=== PATIENT | female | born 1950 | race Caucasian/White ===

== ENCOUNTER → 2024-10-21 11:18 | Outpatient (BNVA) | payer MEDICARE, OTHER, SELFPAY | PROVIDERS: PCP Internal Medicine; Visit Provider Internal Medicine | DX: N63.10 Unspecified lump in the right breast, unspecified quadrant (principal); M54.50 Low back pain, unspecified; E03.9 Hypothyroidism, unspecified; Z79.899 Other long term (current) drug therapy | CPT/HCPCS: 96127; 99212 ==

== ENCOUNTER 2024-11-15 10:13 | Outpatient (AMB) | payer MEDICARE, OTHER, SELFPAY ==
--- NOTE | 2024-11-15 10:20 | MHC.PC.OV ---
Vital Signs 11/15/24 10:26 Height 5 ft 0.54 in Weight 141 lb 6 oz BMI 27.1 BP 104/76 Blood Pressure Location Lt brachial Position Sitting Respiration 12 Pulse 78 Pulse Source Pulse Oximeter Pulse Oximetry (%) 100 Oxygen Delivery Method Room Air Intake Visit Reasons: breast issues Intake Note: Follow up Property Damage Claims Adjustor Required: No Allergies gallium Allergy (Severe, Verified 11/15/24 10:22) Hives meperidine [From Demerol] Allergy (Severe, Verified 11/15/24 10:22) Headache negram Allergy (Severe, Uncoded 11/15/24 10:22) Headache Tobacco use date assessed: 11/15/24 Dental Screening Dental Screen Date: 01/13/24 HPI HPI Comments History of Present Illness Details The patient is a 73 year old female with a past medical history of hypothyroid, asthma, vertigo, hyperlipidemia presenting for right breast lump Since Aug she had some pain and a palpable mass in the right breast about 1 inch above the right nipple. She was on estradiol and a topical herbal cream that contains some estrogen. She has a history of breast implants with explantation in 2020. She has declined mammograms for the past few years. Did not want mammogram. Did undergo a right breast u/s 11/01/2024 -no evidence pf malignancy or other suspicious finding of palpable abnormality. Ideally, this should be further assessed with diagnostic mammogram, which the patient declines At the end of November flew to [place]. Midflight she developed mid/upper back pain more on the right. She denies onset of acute shortness of breath. She reports she did have some right leg discomfort on the flight and during the trip. [place] some [place] U[place] with [place]actrim which she completed. She has a history of nephrolithiasis and wonders if the discomfort could be a right sided kidney stone MSK: Low back pain, b/l hip pain L>R. Left sided sciatic, neck pain. Follows with PSS. Has done physical therapy and chiro CV: Denies chest pain. Mild increase in exertional dypsnea. In Jul 2021 had presyncope & palpitations. subsequent cardiac work up was benign. She now attributes this to covid vaccination. She is prone to vertigo and takes meclizine as needed. Hypothyroid: Stable on levothyroxine 88mcg daily On estradiol. Saw urology, gynecology. Was following with integrative medicine but became too pricey History of breast implants. Surgery in 2020 for explantation. Colonoscopy 11/2022 Declines further breast cancer screening ROS see HPI PHYSICAL EXAM: GENERAL: Alert and oriented x 3. NAD EYES: EOMI. Anicteric. HENT: Moist mucous membranes. No scleral icterus. No cervical lymphadenopathy. LUNGS: Clear to auscultation bilaterally. BREAST: Right breast normal to inspection, 2cm 12 oclock less firm that previous, somewhat mobile palpable mass CARDIOVASCULAR: Regular rate and rhythm. No murmur. No JVD. ABDOMEN: Soft, non-tender +bs EXTREMITIES: No edema. Non-tender. SKIN: No rashes or lesions. Warm. NEUROLOGIC: No focal neurological deficits. CN II-XII grossly intact PSYCHIATRIC: Cooperative. Appropriate mood and affect [facility] Social History Housing: House Alcohol intake: never Patient Tobacco Use Status: Never used Tobacco e-Cigarette/Vaping Use: Never Used Second Hand Smoke Exposure: No Use of substances other than those prescribed or required for medical reasons: No service: No Current occupational status: retired Cognitive needs: No Hearing needs: No Vision needs: Yes (glasses) Questionnaire PHQ-9 Over the last 2 weeks, how often have you been bothered by any of the following problems? 1. Little interest or pleasure in doing things: not at all 2. Feeling down, depressed, or hopeless: not at all 3. Trouble falling or staying asleep, or sleeping too much: not at all 4. Feeling tired or having little energy: not at all 5. Poor appetite or overeating: not at all 6. Feeling bad about yourself - or that you are a failure or have let yourself or your family down: not at all 7. Trouble concentrating on things, such as reading the newspaper or watching television: several days 8. Moving or speaking so slowly that other people could have noticed. Or the opposite - being so fidgety or restless that you have been moving around a lot more than usual: not at all 9. Thoughts that you would be better off or of hurting yourself in some way: not at all Total score: 1 Depression Screening Interpretation: Negative Depression Screening Done: Yes 98934 - PHQ-9 Billing: Yes Source: Developed by Drs. Alban Webber, Bobby Cervantes and colleagues, with an educational mitch from [employer]. Thrive Questionnaire Date Thrive assessed: 11/12/24 I am a: Patient What is your living situation today?: I have a steady place to live Within the past 12 months, did the food you bought not last and you didn't have the money to get more?: Never true Within the past 12 months, did you worry whether your food would run out before you got money to buy more?: Sometimes True Do you have trouble paying for medicines?: No Do you have trouble getting transportation to medical appointments?: No Do you have trouble paying your heating and electricity bill?: Yes Do you have trouble taking care of your child, family member or friend?: No Do you have trouble with day-to-day activities such as bathing, preparing meals, shopping, managing finances, etc.?: No Are you currently unemployed and looking for a job?: I choose not to answer this question Are you interested in more education?: Yes Please select the resources that you would like help with: Utilities Currently or been in a relationship where the following occur: No concerns reported THRIVE Score: 2 AUDIT C Alcohol Use Questionnaire (AUDIT-C) 1. How often do you have a drink containing alcohol?: Never Total Score: 0 JAY-7 AMB Questionnaire JAY-7 Date JAY - 7 assessed: 11/15/24 Feeling nervous, anxious, or on edge: 1 = Several days Not being able to stop or control worryin = Not at all Worrying too much about different things: 0 = Not at all Trouble relaxin = Not at all Being so restless that it is hard to sit still: 0 = Not at all Becoming easily annoyed or irritable: 1 = Several days Feeling afraid as if something awful might happen: 0 = Not at all Total JAY-7 score (0-4 normal; 5-9 mild; 10-14 moderate; 15-21 severe): 2 Source: Developed by Drs. Alban Webber, Bobby Cervantes and colleagues, with an educational mitch from [employer]. JAY-7 Assessment Billing JAY-7 Assessment Tool: JAY-7 Assessment 30560 Physical exam (Primary Care) Vital Signs: Last Vital Signs Pulse 78 11/15/24 10:26 Resp 12 11/15/24 10:26 BP 104/76 11/15/24 10:26 Pulse Ox 100 11/15/24 10:26 Oxygen Delivery Method Room Air 11/15/24 10:26 BMI result Body Mass Index 27.1 Tobacco/Smoking Status: Tobacco use Status Tobacco use date assessed 11/15/24 11/15/24 10:31 Patient Tobacco Use Status Never used Tobacco 11/15/24 10:43 e-Cigarette/Vaping Use Never Used 11/15/24 10:43 PHQ-9: PHQ-9 Score PHQ-9: Total score 1 11/15/24 10:38 Depression Screening Interpretation: Negative Thrive Assessment: Date of Thrive Assessment Date Thrive assessed 11/12/24 11/15/24 10:22 Currently or been in a relationship where the following occur: No concerns reported Coding Level of Care Code Est Pt Level 3 (39156) Diagnoses Chest mass R22.2 Mass of right breast, unspecified quadrant N63.10 Breast mass location: unspecified quadrant Additional Codes JAY-7 Assessment Billing - JAY-7 Assessment Tool: JAY-7 Assessment 46473 ([id number]) PHQ-9 - 44187 - PHQ-9 Billing: Yes ([id number]) Assessment & Plan Assessment & Plan (1) Chest mass: Code(s): R22.2 - Localized swelling, mass and lump, trunk Category: Medical (2) Breast mass, right: Code(s): N63.10 - Unspecified lump in the right breast, unspecified quadrant Category: Medical Qualifiers: Breast mass location: unspecified quadrant Qualified Code(s): N63.10 - Unspecified lump in the right breast, unspecified quadrant Plan 73 year old with right chest palpable mass Recommend MRI and breast/gen surgery consult. The latter is placed. Declines MR at this time Orders: Referrals General Surgery Referral N63.10 - Unspecified lump in the right breast, unspecified quadrant, R22.2 - Localized swelling, mass and lump, trunk
[2024-11-15 10:26] VITALS: BP 104/76; PULSE 78; RESP 12; O2SAT 100; BMI 27.1
--- OUTSIDE RECORDS SUMMARY | 2024-11-15 12:13 | XMS_ITS | Encounter Summary ---
Author Organization [employer] Address [address] [place] [address] [address] [place] [address] Care Team Providers Care Control System Manager Name Role Phone Unavailable Primary Care Provider Unavailabl e Reason for Visit * Reason Comments Routine Cleaning Encounter Details Date Type Department Care Team (Late st Contact Info) Description 11/01/2024 2:00 PM EDT Office Visit [facility] [address] [place] [phone] Antoinette Carr [address] [place] [id number] Social History Tobacco Use Types Packs/Day Years Used Date Smoking Tobacco: Never Smokeless Tobacco: Never Alcohol Use Standard Drinks/Week Comments Never 0 (1 standard drink = 0.6 oz pur e alcohol) Comments Unknown Sex and Gender Information Value Date Recorded Sex Assigned at Female 06/23/2022 10:34 AM EDT Legal Sex Female 10:34 AM EDT Gender Identity Female 06/23/2022 10:34 AM EDT Sexual Orientation Straight 06/23/2022 10 :34 AM EDT documented as of this encounter Last Filed Vital Signs Vital Sign Reading Time Taken Comments Blood Pressure 134/70 11/01/2024 2:17 PM EDT Pulse 74 11/01/2024 2:17 PM EDT Temperature - - Respiratory Rate - - Oxygen Saturation - - Inhaled Oxygen Concentration - - Weight - - Height - - Body Mass Index - - documented in this encounter Progress Notes * Antoinette Carr - 11/01/2024 2:00 PM EDT Patient ID: Angelina Argueta is a 73 y.o. female. Time Out: Date: 11/01/2024 Location: [facility] Tooth: all Procedure: Prophylaxis Verified the above with patient, secretary administrative assistant, and provider. Confirmed via patient's chart, intraorally and by radiographs. Second Crusher: not applicable Treatment Provided Dental procedures in this visit D1110 - PROPHYLAXIS - ADULT (Completed) Service provider: Antoinette Carr Billing provider: Kip Mcneill BDS Instruments Used: Hand Scalers and Prophy angle Calculus: Light Plaque: Light Stain: None Bleeding: Light Gingiva: Perio Charting Completed OH: Good OCS:neg findings HNE:neg findings Oral hygiene instructions provided to patient including brushing technique and flossing. Recommendations: Floss daily Recall Frequency: 6 mo NV: Hygienist: Antoinette Carr RDH Cosigned by Kip Mcneill BDS at 11/02/2024 5:06 PM EDT documented in this encounter Plan of Treatment Upcoming Encounters Date Type Department Care Team (Late st Contact Info) Description 11/29/2024 10:00 AM EDT Office Visit [facility] [address] [place] [phone] Kip Mcneill BDS [address] [place] [phone] documented as of this encounter Procedures Procedure Name Priority Date/Time Associated Diagnosis Comments PROPHYLAXIS - ADULT Routine 11/01/2024 2:00 PM EDT documented in this encounter Visit Diagnoses Not on filedocumented in this encounter
--- OUTSIDE RECORDS SUMMARY | 2024-11-15 12:13 | XMS_ITS | Encounter Summary ---
Author Organization [employer] Address [address] [place] [address] Care Team Providers Care Lead Painter Name Role Phone Unavailable Primary Care Provider Unavailabl e Encounter Details Date Type Department Care Team (Latest Contact Info) Description 10/22/2018 Abstract [facility] CONVERSIONS Dental, Provider, DDS Social History Tobacco Use Types Packs/Day Years Used Date Smoking Tobacco: Never Assessed Comments Unknown Sex and Gender Information Value Date Recorded Sex Assigned at Female 06/23/2022 10:34 AM EDT Legal Sex Female 10:34 AM EDT Gender Identity Female 06/23/2022 10:34 AM EDT Sexual Orientation Straight 06/23/2022 10 :34 AM EDT documented as of this encounter Plan of Treatment Upcoming Encounters Date Type Department Care Team (Late st Contact Info) Description 11/29/2024 10:00 AM EDT Office Visit [facility] [address] [place] [address] Kip Mcneill BDS [address] [place], [place] [phone] documented as of this encounter Visit Diagnoses Not on filedocumented in this encounter
--- OUTSIDE RECORDS SUMMARY | 2024-11-15 12:13 | XMS_ITS | Encounter Summary ---
Author Organization [employer] Address [address] [place] [address] Care Team Providers Care Establishment Guide Name Role Phone Unavailable Primary Care Provider Unavailabl e Reason for Visit * Reason Comments Consult For missing teeth Encounter Details Date Type Department Care Team (Late st Contact Info) Description 11/08/2024 11:30 AM EDT Office Visit [facility] [address] [place] [phone] Kip Mcneill BDS [address] [place] [address] Partially edentulous mandible, unspecified edentulism class (Primary Dx) Social History Tobacco Use Types Packs/Day Years [...] AM EDT documented as of this encounter Progress Notes * Kip Mcneill BDS - 11/08/2024 11:30 AM EDT Patient here to discuss about different options for replacement of missing lower teeth.Patient has bilateral multiple lingual abby.Adv a cast metal bar above the abby which is better and does not cause trauma to the abby.Patient wanted replacement for #15,adv to wait since #2 has guarded prognosis.To review and re evaluate upper partials and lower should be combination f metal lingual bar and flexible clasps. documented in this encounter Plan of Treatment Upcoming Encounters Date Type Department Care Team (Late st Contact Info) Description 11/29/2024 10:00 AM EDT Office Visit [facility] [address] [place] [phone] Kip Mcneill BDS [address] [place] [phone] documented as of this encounter Procedures Procedure Name Priority Date/Time Associated Diagnosis Comments LIMITED ORAL EVALUATION - PROBLEM FOCUSED Routine 11/08/2024 11:30 AM EDT documented in this encounter Visit Diagnoses Diagnosis Partially edentulous mandible, unspecified edentulism class- Primary documented in this encounter
--- OUTSIDE RECORDS SUMMARY | 2024-11-15 12:13 | XMS_ITS | Clinical Summary ---
Author Organization [employer] Address [address] [place] [address] Care Team Providers Care Child Study Team Director Name Role Phone Unavailable Primary Care Provider Unavailabl e Allergies Active Allergy Reactions Criticality Noted Date Comments Epinephrine Palpitations High 08/12/2018 Medications fluocinolone (DermOtic) 0.01 % ear drops INSTILL 2 TO 3 DROPS PER EAR FOR 2 WEEKS NEEDED DIRECTED BY OFFICE 2 Active levalbuterol (Xopenex) 45 MCG/ACT inhaler TAKE 1 PUFF BY MOUTH EVERY 4 HOURS NEEDED FOR WHEEZE/ FOR SHORTNESS OF BREATH 2 Active levothyroxine (Synthroid, Levoxyl) 88 MCG tablet Take 88 mcg by mouth in the morning. 2 Active meclizine (Antivert) 12.5 MG tablet Take 2 tablets by mouth every 8 (eight) hours. Active mometasone (Elocon) 0.1 % ointment APPLY TO ECZEMA ON FACE AND EXTREMITIES TWICE DAILY X UP TO 2 WKS ON, 1 WK OFF. REPEAT NEEDED. 2 Active estradiol (Estrace) 0.1 MG/GM vaginal cream INSERT 1 GRAM PER VAGINA 3X PER WEEK 2 Active EPINEPHrine (Epipen) 0.3 MG/0.3ML injection syringe 0.3 MG INTRAMUSCULAR ONCE, 2 PACK 3 Active EPINEPHrine (EpiPen 2-Rolando) 0.3 MG/0.3ML injection syringe Inject 0.3 mg into the shoulder, thigh, or buttocks. 3 Active hydrocortisone 2.5 % cream APPLY TO EYELID RASH TWICE A DAY NEEDED MAX 14 DAYS/MONTH 3 Active dehydroepiandr osterone (DHEA) 10 MG tablet Take by mouth. 2 Active Active Problems Problem Noted Date Diagnosed Date Dental caries 08/26/2023 Encounters Date Type Department Care Team Description 11/08/2024 11:30 AM EDT Office Visit [facility] [address] [place] [phone] Kip Mcneill BDS Partially edentulous mandible, unspecified edentulism class (Primary Dx) 11/01/2024 2:00 PM EDT Office Visit [facility] [address] [place] [phone] Antoinette Carr from Last 3 Months Social History Tobacco Use Types Packs/Day Years Used Date Smoking Tobacco: Never Smokeless Tobacco: Never Tobacco Cessation:Counseling Given: Not Answered Alcohol Use Standard Drinks/Week Comments Never 0 (1 standard drink = 0.6 oz pur e alcohol) Comments Unknown Sex and Gender Information Value Date Recorded Sex Assigned at Female 06/23/2022 10:34 AM EDT Legal Sex Female 10:34 AM EDT Gender Identity Female 06/23/2022 10:34 AM EDT Sexual Orientation Straight 06/23/2022 10 :34 AM EDT Last Filed Vital Signs Vital Sign Reading Time Taken Comments Blood Pressure 134/70 11/01/2024 2:17 PM EDT Pulse 74 11/01/2024 2:17 PM EDT Temperature - - Respiratory Rate - - Oxygen Saturation - - Inhaled Oxygen Concentration - - Weight - - Height - - Body Mass Index - - Plan of Treatment Upcoming Encounters Date Type Department Care Team (Late st Contact Info) Description 11/29/2024 10:00 AM EDT Office Visit [facility] [address] [place] [phone] Kip Mcneill BDS [address] [place] [phone] Health Maintenance Due Date Last Done Comments CT Colonography 1952 Colonoscopy 1952 Colorectal Cancer Screening 1952 Dental X-Ray: Full Mouth 1952 Depression Screening 1952 FIT DNA/Cologuard 1952 FIT 1952 FOBT 1952 SDOH Screening 1952 Sigmoidoscopy 1952 Alcohol/Substance Use Screening 1964 Hepatitis C Screening 1970 DTaP/Tdap/Td Vaccines (1 - Tdap) 12/04/1971 Pneumococcal Vaccine: 50+ Years (1 of 2 - PCV) 12/04/1971 Zoster Vaccines (1 of 2) 12/04/1971 Mammogram 1992 RSV Patients and Patients Aged 60 years or older (1 - Risk 60-74 years 1-dose series) 2012 COVID-19 Vaccine (2 - Pfizer risk series) 10/25/2021 10/04/2021 Dental Oral Exam 03/10/2023 09/09/2022 Influenza Vaccine (#1) 2024 Dental Prophylaxis 05/05/2025 11/01/2024, 0 09/16/2023, 09/09/2022 Dental X-Ray: Bitewings 07/13/2025 07/12/20, 08/26/2023, 01/21/2023, Additional history exists Tobacco Screening 11/08/2025 11/08/2024 HIB Vaccines Aged Out No longer eligi ble based on patient's age to complete this topic HPV Vaccines Aged Out No longer eligi ble based on patient's age to complete this topic Hepatitis A Vaccines Aged Out No long er eligible based on patient's age to complete this topic Hepatitis B Vaccines Aged Out No long er eligible based on patient's age to complete this topic IPV Vaccines Aged Out No longer eligi ble based on patient's age to complete this topic Meningococcal Vaccine Aged Out No justin soni eligible based on patient's age to complete this topic RSV under 20 months Aged Out No longe r eligible based on patient's age to complete this topic Rotavirus Vaccines Aged Out No longer eligible based on patient's age to complete this topic Procedures Procedure Name Priority Date/Time Associated Diagnosis Comments LIMITED ORAL EVALUATION - PROBLEM FOCUSED Routine 11/08/2024 11:30 AM EDT PROPHYLAXIS - ADULT Routine 11/01/2024 2 :00 PM EDT BITEWING - SINGLE RADIOGRAPHIC IMAGE Routine 07/12/2024 11:30 AM EST PERIODIC ORAL EVALUATION - ESTABLISHED PATIENT Routine 09/09/2022 2:00 PM EST from Last 3 Months or Most Recently Relevant to Health Maintenance Insurance DENTAL - [facility] D[facility] - [facility]
--- OUTSIDE RECORDS SUMMARY | 2024-11-15 12:13 | XMS_ITS | Encounter Summary ---
Author Organization [email or web address] Address [address] [place] [address] Care Team Providers Care Security Assistant Name Role Phone Unavailable Primary Care Provider Unavailabl e Encounter Details Date Type Department Care Team (Latest Contact Info) Description 06/25/2021 Abstract [facility] CONVERSIONS Dental, Provider, DDS Social History [...] Description 11/29/2024 10:00 AM EDT Office Visit [facility] [address] [place] [address] Kip Mcneill BDS [address] [place], [place] [phone] documented as of this encounter Visit Diagnoses Not on filedocumented in this encounter
== END 2024-11-15 10:50 | disposition home or self-care (01) ==
LOC: HO.HMCFM 10:13
PROVIDERS: PCP Internal Medicine; Visit Provider Internal Medicine
DX: R22.2 Localized swelling, mass and lump, trunk (principal); N63.10 Unspecified lump in the right breast, unspecified quadrant

== ENCOUNTER → 2024-11-15 10:13 | Outpatient (BNVA) | payer MEDICARE, OTHER, SELFPAY | PROVIDERS: PCP Internal Medicine; Visit Provider Internal Medicine | DX: N63.10 Unspecified lump in the right breast, unspecified quadrant (principal); R22.2 Localized swelling, mass and lump, trunk; E03.9 Hypothyroidism, unspecified; J45.909 Unspecified asthma, uncomplicated; E78.5 Hyperlipidemia, unspecified | CPT/HCPCS: 96127; 99212 ==

== ENCOUNTER 2024-12-20 14:28 | Outpatient (AMB) | payer MEDICARE, OTHER, SELFPAY ==
--- NOTE | 2024-12-20 14:34 | A.OFFPC_ITS ---
Vital Signs 12/20/24 14:39 Height 5 ft 0.57 in Weight 147 lb 2 oz BMI 28.2 BP 124/62 Blood Pressure Location Rt brachial Respiration 14 Pulse 64 Pulse Source Pulse Oximeter Pulse Oximetry (%) 98 Oxygen Delivery Method Room Air Intake Visit Reasons: urgent care follow up appointment Intake Note: Had a fall 11/24 and hurt lower back. Allergies gallium Allergy (Severe, Verified 11/15/24 10:22) Hives meperidine [From Demerol] Allergy (Severe, Verified 11/15/24 10:22) Headache negram Allergy (Severe, Uncoded 11/15/24 10:22) Headache Tobacco use date assessed: 11/15/24 Fall risk assessment: 1 Fall in past year Last assessed Fall Risk: 12/20/24 Dental Screening Dental Screen Date: 01/13/24 Did you have a dental visit in the last 12 months?: Yes Did you have a dental problem in the last 6 months where you did not have access to dental care?: No Was dental information given to patient?: Patient has dentist HPI HPI Comments History of Present Illness Details The patient is a 73 year old female with a past medical history of hypothyroid, asthma, vertigo, hyperlipidemia presenting for urgent care follow up She fell on 11/24. Twisted her lower spine trying to hold her mother up. She was prescribed muscle relaxant. She continues to have moderately severe right thoracolumbar back spasm albeit some interval improvement. She is now following with surgery, Dr Carroll for a palpable mass in the rig ht breast about 1 inch above the right nipple. She was on estradiol and a topical herbal cream that contains some estrogen. She has a history of breast implants with explantation in 2020. She has declined mammograms for the past few years. Did not want mammogram. Did undergo a right breast u/s 11/01/2024 -no evidence pf malignancy or other suspicious finding of palpable abnormality. Dr Carroll also recommended diagnostic mammogram which the patient declines and then contrast MRI but patient has issues with contrast and so have settled on non contrast MRI At the end of November flew to [place]. Midflight she developed mid/upper back pain more on the right. She denies onset of acute shortness of breath. She reports she did have some right leg discomfort on the flight and during the trip. [place] she completed. She has a history of nephrolithiasis and wonders if the discomfort could be a right sided kidney stone MSK: Chronic low back pain, b/l hip pain L>R. Left sided sciatic, neck pain. Follows with PSS. Has done physical therapy and chiro CV: Denies chest pain. Mild increase in exertional dypsnea. In Jul 2021 had presyncope & palpitations. subsequent cardiac work up was benign. She now attributes this to covid vaccination. She is prone to vertigo and takes meclizine as needed. Hypothyroid: Stable on levothyroxine 88mcg daily On estradiol. Saw urology, gynecology. Was following with integrative medicine but became too pricey History of breast implants. Surgery in 2020 for explantation. Colonoscopy 11/2022 Declines further breast cancer screening ROS see HPI PHYSICAL EXAM: GENERAL: Alert and oriented x 3. NAD EYES: EOMI. Anicteric. HENT: Moist mucous membranes. No scleral icterus. No cervical lymphadenopathy. LUNGS: Clear to auscultation bilaterally. CARDIOVASCULAR: Regular rate and rhythm. No murmur. No JVD. ABDOMEN: Soft, non-tender +bs EXTREMITIES: No edema. Non-tender. MSK: Notable right thoracolumbar and lower right trapezius spasm SKIN: No rashes or lesions. Warm. NEUROLOGIC: No focal neurological deficits. CN II-XII grossly intact PSYCHIATRIC: Cooperative. Appropriate mood and affect [facility] Social History Housing: House Alcohol intake: never Patient Tobacco Use Status: Never used Tobacco e-Cigarette/Vaping Use: Never Used Second Hand Smoke Exposure: No service: No Current occupational status: retired Cognitive needs: No Hearing needs: No Vision needs: Yes (glasses) Questionnaire Thrive Questionnaire Date Thrive assessed: 11/12/24 I am a: Patient What is your living situation today?: I have a steady place to live Within the past 12 months, did the food you bought not last and you didn't have the money to get more?: Never true Within the past 12 months, did you worry whether your food would run out before you got money to buy more?: Sometimes True Do you have trouble paying for medicines?: No Do you have trouble getting transportation to medical appointments?: No Do you have trouble paying your heating and electricity bill?: Yes Do you have trouble taking care of your child, family member or friend?: No Do you have trouble with day-to-day activities such as bathing, preparing meals, shopping, managing finances, etc.?: No Are you currently unemployed and looking for a job?: I choose not to answer this question Are you interested in more education?: Yes Please select the resources that you would like help with: Utilities Currently or been in a relationship where the following occur: No concerns reported THRIVE Score: 2 JAY-7 AMB Questionnaire JAY-7 Date JAY - 7 assessed: 11/15/24 Source: Developed by Drs. Alban Webber, Jada Del Real, Bobby Prather and colleagues, with an educational mitch from [employer] Physical exam (Primary Care) Vital Signs: Last Vital Signs Pulse 64 12/20/24 14:39 Resp 14 12/20/24 14:39 BP 124/62 12/20/24 14:39 Pulse Ox 98 12/20/24 14:39 Oxygen Delivery Method Room Air 12/20/24 14:39 BMI result Body Mass Index 28.2 Tobacco/Smoking Status: Tobacco use Status Tobacco use date assessed 11/15/24 12/20/24 14:35 Patient Tobacco Use Status Never used Tobacco 12/20/24 14:35 e-Cigarette/Vaping Use Never Used 12/20/24 14:35 Thrive Assessment: Date of Thrive Assessment Date Thrive assessed 11/12/24 12/20/24 14:35 Currently or been in a relationship where the following occur: No concerns reported Coding Level of Care Code Est Pt Level 4 (21199) Diagnoses Lumbar back pain M54.50 Fall, subsequent encounter W19.XXXD Encounter type: subsequent encounter Assessment & Plan Assessment & Plan (1) Lumbar back pain: Code(s): M54.50 - Low back pain, unspecified Category: Medical (2) Fall: Code(s): W19.XXXA - Unspecified fall, initial encounter Category: Medical Qualifiers: Encounter type: subsequent encounter Qualified Code(s): W19.XXXD - Unspecified fall, subsequent encounter Plan Fall, back spasm Acute on chronic low back pain PT referral placed Prednisone pulse and valium prn Orders: Orders PT Evaluation and Treatment 12/20/24 M54.50 - Low back pain, unspecified, M54.6 - Pain in thoracic spine Medications: New prednisone 40 mg (2 x 20 mg) PO DAILY 10 tabs 0RF 5 days diazepam (Valium) 2 - 4 mg (1 - 2 x 2 mg) PO BEDTIME PRN 20 tabs 0RF sleep
[2024-12-20 14:39] VITALS: BP 124/62; PULSE 64; RESP 14; O2SAT 98; BMI 28.2
--- OUTSIDE RECORDS SUMMARY | 2024-12-20 16:44 | XMS_ITS | Clinical Summary ---
Author Organization [facility] Address [address] [place] [address] Phone Care Team Providers Care Cardiovascular Tech Name Role Phone Yumiko Chamorro MD Primary Care Provider [phone] Allergies Active Allergy Reactions Criticality Noted Date Comments Barium Sulfate Hives 11/29/2024 Shrimp Diarrhea 11/29/2024 Medications levothyroxine (SYNTHROID, LEVOTHROID) 88 mcg tablet Take 1 tablet (88 mcg total) by mouth 1 (one) time each day. 5 Active fluocinolone acetonide oiL 0.01 % drops APPLY DAILY TO EARS FOR UP TO 2 WEEKS AT A TIME NEEDED 5 Active EPINEPHrine (EPIPEN) 0.3 mg/0.3 mL injection INJECT INTO OUTER THIGH NEEDED FOR ANAPHYLAXIS AND THEN CALL 911 4 Active Encounters Date Type Department Care Team Description 11/29/2024 10:00 AM EDT Consult General Surgery [address] [place] [address] Yumiko Guevara MD Mass of right breast, unspecified quadrant (Primary Dx); Unspecified lump in the right breast, unspecified quadrant; History of breast implant removal; History of breast augmentation; Unspecified lump in the right breast, overlapping quadrants from Last 3 Months Social History Tobacco Use Types Packs/Day Years Used Date Smoking Tobacco: Never Tobacco Cessation:Counseling Given: Not Answered Alcohol Use Standard Drinks/Week Comments Not Currently 0 (1 standard drink = 0.6 oz pur e alcohol) Comments Unknown Sex and Gender Information Value Date Recorded Sex Assigned at Not on file Legal Sex Female 10:14 AM EDT Gender Identity Not on file Sexual Orientation Not on file Obstetrics History Last Filed Vital Signs Vital Sign Reading Time Taken Comments Blood Pressure 122/80 11/29/2024 10:21 AM EDT Pulse 76 11/29/2024 10:21 AM EDT Temperature 36.3 ??C (97.3 ??F) 11/29/2024 1 0:21 AM EDT Respiratory Rate - - Oxygen Saturation - - Inhaled Oxygen Concentration - - Weight 64.8 kg (142 lb 12.8 oz) 025 10:21 AM EDT Height 162.6 cm (5' 4 ) 11/29/2024 10:2 1 AM EDT Body Mass Index 24.51 11/29/2024 10:21 AM EDT Plan of Treatment Health Maintenance Due Date Last Done Comments Breast Cancer Screening 1950 DTaP,Tdap,and Td Vaccines (1 - Tdap) 12/04/1971 Pneumococcal Vaccine: 50+ Ye ars (1 of 1 - PCV) 2002 Zoster Vaccines (1 of 2) 2002 COVID-19 Vaccine (2 - 2023-2 5 season) 2024 10/04/2021 Colorectal Cancer Screening: Colonoscopy 11/23/2024 Depression Screening 11/23/2024 Falls Risk Assessment 11/23/2024 Hepatitis C Screening 11/23/2024 Medicare Annual Wellness Visit 11/23/2024 Osteoporosis Screening (Bone Density Screening) 11/23/2024 Social Influencers of Health Screening 11/23/2024 Influenza Vaccine (Season Ended) 2025 RSV Immunization Adult Patie nts (1 - 1-dose 75+ series) 12/04/2027 HIB Vaccines Aged Out No longer eligi [...] on patient's age to complete this topic MMR Vaccines Aged Out No longer eligi ble based on patient's age to complete this topic Meningococcal ACWY Vaccine Aged Out N o longer eligible based on patient's age to complete this topic Meningococcal B Vaccine Aged Out No l onger eligible based on patient's age to complete this topic RSV Immunization Patients Un angelica 20 months Aged Out No longer eligible b ased on patient's age to complete this topic Varicella Vaccines Aged Out No longer eligible based on patient's age to complete this topic Insurance MEDICARE [facility] Care Teams Cardiovascular Tech Relationship Specialty Start Date End Date Yumiko Chamorro MD [address] [place] [id number] PCP - General Internal Medicine 11/23/24
--- OUTSIDE RECORDS SUMMARY | 2024-12-20 16:44 | XMS_ITS | Encounter Summary ---
Author Organization [employer] Address [address] [place] [address] Care Team Providers Care Anvil Worker Name Role Phone Unavailable Primary Care Provider Unavailabl e Encounter Details Date Type Department Care Team (Latest Contact Info) Description 10/22/2018 Abstract [facility] Dental, Provider, DDS Social History Tobacco Use Types Packs/Day Years Used Date Smoking Tobacco: Never Assessed Comments Unknown Sex and Gender Information Value Date Recorded Sex Assigned at Female 06/23/2022 10:34 AM EDT Legal Sex Female 10:34 AM EDT Gender Identity Female 06/23/2022 10:34 AM EDT Sexual Orientation Straight 06/23/2022 10 :34 AM EDT documented as of this encounter Plan of Treatment Not on file documented as of this encounter Visit Diagnoses Not on filedocumented in this encounter
--- OUTSIDE RECORDS SUMMARY | 2024-12-20 16:44 | XMS_ITS | Clinical Summary ---
Author Organization [employer] Address [address] [place] [address] Care Team Providers Care Head Batcher Name Role Phone Unavailable Primary Care Provider [...] Description 11/08/2024 11:30 AM EDT Office Visit [facility] [address] [place] [id number] Kevin Mcneillsastewart, BDS Partially edentulous mandible, unspecified edentulism class (Primary Dx) 11/01/2024 2:00 PM EDT Office Visit [facility] [address] [place] [address] Antoinette Carr from Last 3 Months Social [...] Mass Index - - Plan of Treatment Health Maintenance Due Date [...] Relevant to Health Maintenance Insurance DENTAL - [facility] - [employer]
--- OUTSIDE RECORDS SUMMARY | 2024-12-20 16:44 | XMS_ITS | Encounter Summary ---
Author Organization [employer] Address [address] [place] [address] Care Team Providers Care Transportation Economics Teacher Name Role Phone Unavailable Primary Care Provider Unavailabl e Encounter Details Date Type Department Care Team (Latest Contact Info) Description 06/25/2021 Abstract [facility] Dental, Provider, DDS Social History [...]
== END 2024-12-20 15:08 | disposition home or self-care (01) ==
LOC: HO.HMCFM 14:29
PROVIDERS: PCP Internal Medicine; Visit Provider Internal Medicine
DX: M54.50 Low back pain, unspecified (principal); W19.XXXD Unspecified fall, subsequent encounter

== ENCOUNTER → 2024-12-20 14:28 | Outpatient (BNVA) | payer MEDICARE, OTHER, SELFPAY | PROVIDERS: PCP Internal Medicine; Visit Provider Internal Medicine | DX: M54.50 Low back pain, unspecified (principal); E03.9 Hypothyroidism, unspecified; J45.909 Unspecified asthma, uncomplicated; E78.5 Hyperlipidemia, unspecified; Z91.81 History of falling | CPT/HCPCS: 99212 ==

== ENCOUNTER 2025-06-09 09:15 | Outpatient (AMB) | payer MEDICARE, OTHER, SELFPAY ==
--- OUTSIDE RECORDS SUMMARY | 2025-06-08 10:30 | XMS_ITS | Encounter Summary ---
Author Organization [facility] Address [address] [place] [address] Phone Care Team Providers Care Radial Drill Operator Name Role Phone Yumiko Stafford MD Primary Care Provider + [phone] Reason for Visit * Reason Comments Wheezing X 3 months following covid in march Cough X 3 months Encounter Details Date Type Department Care Team (Late st Contact Info) Description 06/08/2025 10:30 AM EDT Office Visit [facility] [address] [address] Holli Ceron, [address] [address] [email or web address] Malorie Busby, [facility] [address] [place] [address] [email or web address] Acute cough (Primary Dx) Social History Tobacco Use Types Packs/Day Years Used Date Smoking Tobacco: Never Smokeless Tobacco: Never Tobacco Cessation:Counseling Given: Not Answered Alcohol Use Standard Drinks/Week Comments Not Currently 0 (1 standard drink = 0.6 oz pur e alcohol) Education Answer Date Recorded Are you interested in more education? Not on emani e 12/20/2022 Are you concerned about learning? Not on file 12/20/2022 No 12/20/2022 No 12/20/2022 Digital Access Answer Date Recorded No 01/18/2023 No 01/18/2023 Reliable internet access at home? Not on file 01/18/2023 Device with a working camera? Not on file Intimate Partner Violence Answer Date R ecorded Are you denied basic needs s uch as food, clothing, or medical care? No 12/16/2022 In the past 12 months have y ou been in a relationship with a person who hurts, threatens, or tries to control you? No 12/16/2022 Are you denied basic needs s uch as food, clothing, or medical care? No 12/16/2022 In the past 12 months have y ou been in a relationship with a person who hurts, threatens, or tries to control you? No 12/16/2022 Comments Unknown Sex and Gender Information Value Date Recorded Sex Assigned at Not on file Legal Sex Female 8:31 AM EST Gender Identity Not on file Sexual Orientation Not on file documented as of this encounter Last Filed Vital Signs Vital Sign Reading Time Taken Comments Blood Pressure 132/67 06/08/2025 10:41 AM EDT Pulse 69 06/08/2025 10:41 AM EDT Temperature 36.9 C (98.4 F) 06/08/2025 10:41 AM EDT Respiratory Rate 18 06/08/2025 10:41 AM EDT Oxygen Saturation 99% 06/08/2025 10:41 AM EDT Inhaled Oxygen Concentration - - Weight 63.5 kg (140 lb) 06/08/2025 10:41 AM EDT Height 162.6 cm (5' 4 ) 06/08/2025 10:41 AM EDT Body Mass Index 24.03 06/08/2025 10:41 AM EDT documented in this encounter Progress Notes * Malorie Busby, STONE SPREADER OPERATOR - 06/08/2025 10:30 AM EDT Images from the original note were not included. Subjective: Patient ID: Angelina Argueta is a 74 y.o. female. Wheezing and cough x 3 months in AM. Hx asthma, takes albuterol. Has not tried allergy medicine because of fear of dementia risk. Concerned for TB because a friend has previously been treated for it. No fevers or systemic illness Review of Systems Constitutional: Negative. Respiratory: Positive for cough and wheezing. Negative for shortness of breath. Vitals: 06/08/25 1041 BP: 132/67 BP Location: Right arm Pulse: 69 Resp: 18 Temp: 36.9 ??C (98.4 ??F) TempSrc: Temporal SpO2: 99% Weight: 63.5 kg (140 lb) Height: 162.6 cm (5' 4 ) Objective: Physical Exam Constitutional: Appearance: Normal appearance. HENT: Head: Normocephalic and atraumatic. Right Ear: External ear normal. Left Ear: External ear normal. Nose: Nose normal. Pulmonary: Effort: Pulmonary effort is normal. Breath sounds: Normal breath sounds. Skin: General: Skin is warm and dry. Neurological: General: No focal deficit present. Mental Status: She is alert and oriented to person, place, and time. Psychiatric: Mood and Affect: Mood normal. Behavior: Behavior normal. Thought Content: Thought content normal. Judgment: Judgment normal. No results found for this visit on 06/08/25. Procedure: Procedures Assessment/Plan: Diagnosis Plan 1. Acute cough XR Chest Assessment and Plan: Asthma exacerbation -Lungs presently clear and sats 99% -CXR normal, no pneumonia or TB - Recommended trialing allergy medication -Could also try HEPA filter in bedroom -Recommend further follow up with PCP documented in this encounter Plan of Treatment Not on file documented as of this encounter Procedures Procedure Name Priority Date/Time Associated Diagnosis Comments XR CHEST PA AND LATERAL 2 VIEWS Urgent/patient waiting 06/08/2025 11:02 AM EDT Acute cough documented in this encounter Results * XR CHEST PA AND LATERAL 2 VIEWS (06/08/2025 11:02 AM EDT) Anatomical Region Laterality Modality Chest Computed Radiogr aphy 06/08/2025 11:3 9 AM EDT Impressions 06/08/2025 11:41 AM EDT No pneumonia or acute cardiopulmonary process. Narrative 06/08/2025 11:41 AM EDT XR CHEST PA AND LATERAL 2 VIEWS Referring clinician's provided indication for this examination in Epic: Cough COMPARISON: None. FINDINGS: Devices/Tubes/Lines: None. Lungs: No focal consolidation or pulmonary edema. Pleura: No pleural effusion or pneumothorax. Heart/Mediastinum: Normal cardiac silhouette. Normal mediastinal contours. Bones/Soft Tissues: No acute osseous abnormality. Mild leftward curvature of the thoracic spine with mild multilevel degenerative changes. Procedure Note Raman Palacios MD - 06/08/2025 XR CHEST PA AND LATERAL 2 VIEWS Referring clinician's provided indication for this examination in Epic:Cough COMPARISON: None. FINDINGS: Devices/Tubes/Lines: None. Lungs: No focal consolidation or pulmonary edema. Pleura: No pleural effusion or pneumothorax. Heart/Mediastinum: Normal cardiac silhouette. Normal mediastinalcontours. Bones/Soft Tissues: No acute osseous abnormality. Mild leftward curvatureof the thoracic spine with mild multilevel degenerative changes. IMPRESSION: No pneumonia or acute cardiopulmonary process. Malorie Busby STONE SPREADER OPERATOR IMG XR CHEST Final R esult documented in this encounter Visit Diagnoses Diagnosis Acute cough- Primary documented in this encounter Care Teams Radial Drill Operator Relationship Specialty Start Date End Date Yumiko Stafford MD PCP - General Internal Medicine 12/16/22 documented as of this encounter Additional Source Comments The information contained in this document represents components of the legal health record. It is not the complete legal health record.[facility]
--- OUTSIDE RECORDS SUMMARY | 2025-06-08 10:54 | XMS_ITS | Encounter Summary ---
Author Organization [facility] Address [address] [place] [address] Phone Care Team Providers Care Golf Club Facer Name Role Phone Yumiko Stafford MD Primary Care Provider + [phone] Encounter Details Date Type Department Care Team (Late st Contact Info) Description 06/08/2025 10:54 AM EDT Hospital Encounter [facility] [address] [place] [id number] Malorie Busby, PROSPECTING DRILLER [address] [place] [address] [email or web address] Arrived Social History Tobacco Use Types Packs/Day Years [...] acute cardiopulmonary process. us Malorie Christian Qi PROSPECTING DRILLER IMG XR CHEST Final R esult documented in this encounter Visit Diagnoses Not on filedocumented in this encounter Care Teams Golf Club Facer Relationship Specialty Start Date End Date Yumiko Stafford MD PCP - General Internal Medicine 12/16/22 documented as of this encounter Additional Source Comments The information contained in this document represents components of the legal health record. It is not the complete legal health record.[facility]
--- NOTE | 2025-06-09 09:22 | MHC.PC.OV ---
Vital Signs 06/09/25 09:27 Height 5 ft 1 in Weight 145 lb 4 oz BMI 27.4 BP 122/70 Blood Pressure Location Lt brachial Position Sitting Respiration 12 Pulse 66 Pulse Source Pulse Oximeter Temp 97.6 F Temp Source Oral Pulse Oximetry (%) 98 Oxygen Delivery Method Room Air Intake Visit Reasons: TB Test /covid symptoms Intake Note: Patient c/o wheezing x 2 months. Patient had covid in March and still is not feeling better. Newsperson Required: No Allergies gallium Allergy (Severe, Verified 06/09/25 09:57) Hives meperidine (From Demerol) Allergy (Severe, Verified 06/09/25 09:57) Headache negram Allergy (Severe, Uncoded 06/09/25 09:23) Headache Medication List - Last Reconciled 06/09/25 by TED Ventura- [ddr prime .] diazepam (Valium) 2 - 4 mg (1 - 2 x 2 mg) PO BEDTIME PRN epinephrine IM DAILY fluocinolone acetonide oil 0.01% drps otic (ears) [Frankincense .] levalbuterol tartrate 45 mcg/actuation (Xopenex HFA) 2 puffs inhalation Q4-6H PRN levothyroxine 88 mcg PO DAILY meclizine 12.5 mg PO TID PRN [omega .] prednisone 40 mg (2 x 20 mg) PO DAILY 5 days [probiotic .Route.] Tobacco use date assessed: 06/09/25 Fall risk assessment: 1 Fall in past year Last assessed Fall Risk: 06/09/25 Dental Screening Dental Screen Date: 06/09/25 Did you have a dental visit in the last 12 months?: Yes Did you have a dental problem in the last 6 months where you did not have access to dental care?: No Was dental information given to patient?: Patient has dentist HPI HPI Comments History of Present Illness Details 74 year old female with a past medical history of hypothyroid, asthma, vertigo, hyperlipidemia History of Present Illness The patient is a 74-year-old female presenting with exposure to tuberculosis and recent wheezing. Exposure to Tuberculosis: - Recent exposure to a TB-positive individual. - Friend exhibited coughing with blood. -Last contact Thursday Asthma: - Increased wheezing upon waking. - Symptom relief with coughing and inhaler use. - Went to walk in yesterday, CXR WNL. Told she likely has allergies to dust ; i dont have this report. History of Recurrent COVID-19 Infections: - Three episodes since 2020. - Persistent chest symptoms despite recovery from last infection. 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 Review of Systems - Respiratory: Reports wheezing upon waking, coughing, and congestion with clear mucous. - Allergy/Immunologic: Reports increased allergy symptoms during spring and fall. - General: Reports a history of COVID-19 infections. Physical Exam General: Well developed, well nourished, in no acute distress. Appears stated age. Head: Normocephalic, atraumatic. Eyes: Pupils are equal, round and reactive to light and accommodation. Conjunctivae are clear. Lungs: Clear to auscultation bilaterally. No rales, rhonchi noted. Heart: Regular rate and rhythm. No murmurs, click, rubs or gallops are noted. Psych: Mood and affect appropriate Results Pending Discussion Notes During the visit, we discussed the potential risk of tuberculosis exposure due to the patient's frequent contact with a friend who is known to have tuberculosis. I explained the significance of obtaining a Tuberculin Gold blood test in lieu of the traditional PPD to avoid potential false positives caused by the patient's mast cell activation syndrome (MCAS). I reassured the patient that the likelihood of tuberculosis is low given the clear chest X-ray but stressed the importance of completing the test to rule out infection. I also discussed her asthma symptoms, likely exacerbated by her recent COVID-19 infections and possible dust allergy, recommending ongoing use of the inhaler and consideration of low-dose prednisone. Follow-up testing instructions were provided, and we also talked about potential environmental modifications to reduce allergy symptoms, such as ensuring the bedroom is dust-free. Patient was given time to ask questions. All questions were answered to their satisfaction. Assessment and Plan 1. Exposure to Tuberculosis - Tuberculin Gold test ordered today. - Reassurance given regarding recent clear chest X-ray. 2. Asthma - Inhaler use to continue. - Consider low-dose steroids pending TB test results. - Reduce environmental dust exposure. - Recommend fu with PCP as scheduled 06/20 to see about steroid use PRN 3. History of Recurrent COVID-19 Infections - In the setting of MCAS and IgG def. Patient Instructions - Get Tuberculin Gold blood test completed today. - Use inhaler as needed for wheezing. - Maintain a clean home, particularly the bedroom, to reduce dust triggers. - Follow up with any new or worsening symptoms. - Consider low-dose prednisone after TB test results, as discussed. Consent The patient consents to undergo a Tuberculin Gold blood test to screen for tuberculosis exposure. I discussed the risks, benefits, and alternatives of this test compared to the traditional PPD skin test, emphasizing the avoidance of false positives due to her MCAS condition. Consent obtained from the patient after the explanation of procedure specifics, potential outcomes, and immediate availability of results via patient portal. Patient was informed and verbally consented to the use of an ambient scribe for clinic note documentation during this visit. Total time spent caring for the patient today was [] minutes. This includes time spent before the visit reviewing the chart, time spent during the visit, and time spent after the visit on documentation, reviewing laboratory results, diagnostic imaging, medications, performing a medically necessary evaluation, counseling on diagnoses, care coordination, ordering appropriate tests, ordering appropriate medications, review of tests performed by other providers, reporting test results with the patient, communication with other healthcare providers. [facility] Social History Housing: House Alcohol intake: never Patient Tobacco Use Status: Never used Tobacco e-Cigarette/Vaping Use: Never Used Second Hand Smoke Exposure: No service: No Current occupational status: retired Cognitive needs: No Hearing needs: No Vision needs: Yes (glasses) Questionnaire PHQ-9 Over the last 2 weeks, how often have you been bothered by any of the following problems? 1. Little interest or pleasure in doing things: not at all 2. Feeling down, depressed, or hopeless: not at all 3. Trouble falling or staying asleep, or sleeping too much: not at all 4. Feeling tired or having little energy: not at all 5. Poor appetite or overeating: not at all 6. Feeling bad about yourself - or that you are a failure or have let yourself or your family down: not at all 7. Trouble concentrating on things, such as reading the newspaper or watching television: not at all 8. Moving or speaking so slowly that other people could have noticed. Or the opposite - being so fidgety or restless that you have been moving around a lot more than usual: not at all 9. Thoughts that you would be better off or of hurting yourself in some way: not at all Total score: 0 Depression Screening Interpretation: Negative Depression Screening Done: Yes 41896 - PHQ-9 Billing: Yes Source: Developed by Drs. Alban Webber, Jada Del Real, Bobby Prather and colleagues, with an educational mitch from [employer]. Thrive Questionnaire Date Thrive assessed: 06/09/25 I am a: Patient What is your living situation today?: I have a steady place to live Within the past 12 months, did the food you bought not last and you didn't have the money to get more?: Never true Within the past 12 months, did you worry whether your food would run out before you got money to buy more?: Sometimes True Do you have trouble paying for medicines?: No Do you have trouble getting transportation to medical appointments?: No Do you have trouble paying your heating and electricity bill?: Yes Do you have trouble taking care of your child, family member or friend?: No Do you have trouble with day-to-day activities such as bathing, preparing meals, shopping, managing finances, etc.?: No Are you currently unemployed and looking for a job?: I choose not to answer this question Are you interested in more education?: Yes Please select the resources that you would like help with: Utilities Currently or been in a relationship where the following occur: No concerns reported THRIVE Score: 2 JAY-7 AMB Questionnaire JAY-7 Date JAY - 7 assessed: 06/09/25 Feeling nervous, anxious, or on edge: 0 = Not at all Not being able to stop or control worryin = Not at all Worrying too much about different things: 0 = Not at all Trouble relaxin = Not at all Being so restless that it is hard to sit still: 0 = Not at all Becoming easily annoyed or irritable: 0 = Not at all Feeling afraid as if something awful might happen: 0 = Not at all Total JAY-7 score (0-4 normal; 5-9 mild; 10-14 moderate; 15-21 severe): 0 Source: Developed by Drs. Alban Webber, Jada Del Real, Bobby Prather and colleagues, with an educational mitch from [employer]. JAY-7 Assessment Billing JAY-7 Assessment Tool: JAY-7 Assessment 38601 Physical exam (Primary Care) Vital Signs: Last Vital Signs Temp 97.6 F 06/09/25 09:27 Pulse 66 06/09/25 09:27 Resp 12 06/09/25 09:27 BP 122/70 06/09/25 09:27 Pulse Ox 98 06/09/25 09:27 Oxygen Delivery Method Room Air 06/09/25 09:27 BMI result Body Mass Index 27.4 Tobacco/Smoking Status: Tobacco use Status Tobacco use date assessed 06/09/25 06/09/25 09:25 Patient Tobacco Use Status Never used Tobacco 06/09/25 09:25 e-Cigarette/Vaping Use Never Used 06/09/25 09:25 PHQ-9: PHQ-9 Score PHQ-9: Total score 0 06/09/25 09:25 Depression Screening Interpretation: Negative Thrive Assessment: Date of Thrive Assessment Date Thrive assessed 06/09/25 06/09/25 09:25 Currently or been in a relationship where the following occur: No concerns reported Coding Level of Care Code Est Pt Level 4 (42881) Complex EM visit Add On G2211 Diagnoses Exposure to TB Z20.1 Mild intermittent asthma without complication J45.20 Asthma complication type: uncomplicated 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 History of COVID-19 Z86.16 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 Additional Codes JAY-7 Assessment Billing - JAY-7 Assessment Tool: JAY-7 Assessment 84373 ([id number]) PHQ-9 - 22253 - PHQ-9 Billing: Yes ([id number]) Assessment & Plan Assessment & Plan (1) Exposure to TB: Code(s): Z20.1 - Contact with and (suspected) exposure to tuberculosis Category: Medical (2) Asthma, mild intermittent: Code(s): J45.20 - Mild intermittent asthma, uncomplicated Category: Medical Qualifiers: Asthma complication type: uncomplicated Qualified Code(s): J45.20 - Mild intermittent asthma, uncomplicated (3) IgG deficiency: Comment: stable Code(s): D80.3 - Selective deficiency of immunoglobulin G [IgG] subclasses Category: Medical (4) History of COVID-19: Code(s): Z86.16 - Personal history of COVID-19 Category: Medical (5) Mast cell activation syndrome: Code(s): D89.40 - Mast cell activation, unspecified Category: Medical Plan . Orders: Orders T Spot TB Today Z11.1 - Encounter for screening for respiratory tuberculosis
[2025-06-09 09:27] VITALS: BP 122/70; PULSE 66; RESP 12; TEMP 36.4; O2SAT 98; BMI 27.4
--- OUTSIDE RECORDS SUMMARY | 2025-06-09 10:10 | XMS_ITS | Encounter Summary ---
Author Organization [employer] Address [address] [place] [address] [address] [address] Care Team Providers Care Teaching Associate Name Role Phone Unavailable Primary Care Provider Unavailabl e Encounter Details Date Type Department Care Team (Latest Contact Info) Description 06/25/2021 Abstract [facility] CONVERSIONS Dental, Provider, DDS Social History Tobacco [...] Care Team (Late st Contact Info) Description 08/29/2025 10:00 AM EST Office Visit [facility] [address] [place], [place] [phone] Antoinette Carr [address] [place], [place] [phone] documented as of this encounter Visit Diagnoses Not on filedocumented in this encounter
--- OUTSIDE RECORDS SUMMARY | 2025-06-09 10:10 | XMS_ITS | Encounter Summary ---
Author Organization [employer] Address [address] [place] [address] [address] Care Team Providers Care Experimental Mechanic Spacecraft Name Role Phone Unavailable Primary Care Provider Unavailabl e Encounter Details Date Type Department Care Team (Latest Contact Info) Description 10/22/2018 Abstract [facility] CONVERSIONS Dental, Provider, DDS Social History [...] Description 08/29/2025 10:00 AM EST Office Visit [facility] [address] [place] [address] [phone] Antoinette Carr [address] [place], [place] [phone] documented as of this encounter Visit Diagnoses Not on filedocumented in this encounter
--- OUTSIDE RECORDS SUMMARY | 2025-06-09 10:10 | XMS_ITS | Clinical Summary ---
Author Organization [address] [facility] Address [address] [place] [address] Phone Care Team Providers Care Graphics Specialist Name Role Phone Yumiko Chamorro MD Primary Care Provider [phone] Allergies Active Allergy Reactions Criticality Noted Date [...] ANAPHYLAXIS AND THEN CALL [phone] Active Social History Tobacco Use Types Packs/Day Years [...] 76 11/29/2024 10:21 AM EDT Temperature 36.3 C (97.3 F) 11/29/2024 10:21 AM EDT Respiratory Rate - - Oxygen Saturation - - Inhaled Oxygen Concentration - - Weight 64.8 kg (142 lb 12.8 oz) 025 10:21 AM EDT Height 162.6 cm (5' 4 ) 11/29/2024 10:2 1 AM EDT Body Mass Index 24.51 11/29/2024 10:21 AM EDT Plan of Treatment Health Maintenance Due Date Last Done Comments Breast Cancer Screening 1950 Colorectal Cancer Screening: Colonoscopy 1950 DTaP,Tdap,and Td Vaccines (1 - Tdap) 12/04/1971 Pneumococcal Vaccine: 50+ Ye ars (1 of 1 - PCV) 2002 Zoster Vaccines (1 of 2) 2002 Depression Screening 08/24/2024 Falls Risk Assessment 11/23/2024 Hepatitis C Screening 11/23/2024 Medicare Annual Wellness Visit 11/23/2024 Osteoporosis Screening (Bone Density Screening) 11/23/2024 Social Influencers of Health Screening 11/23/2024 COVID-19 Vaccine (2 - 2024-2 6 season) 2025 10/04/2021 Influenza Vaccine (#1) 2025 RSV Immunization Adult Patie nts (1 [...] age to complete this topic Insurance MEDICARE [facility] Care Teams Graphics Specialist Relationship Specialty Start Date End Date Yumiko Chamorro MD [address] [place] [id number] PCP - General Internal Medicine 11/23/24
--- OUTSIDE RECORDS SUMMARY | 2025-06-09 10:10 | XMS_ITS | Encounter Summary ---
Author Organization [facility] Address [address] [place] [phone] Phone Care Team Providers Care Motor Expert Name Role Phone Yumiko Stafford MD Primary Care Provider [phone] Encounter Details Date Type Department Care Team (Late st Contact Info) Description 12/16/2022 Procedure Pass [facility] Endoscopy Admitting Dept Virtual Department [address] [place] [address] Social History Tobacco Use Types Packs/Day Years Used Date Smoking Tobacco: Never Smokeless Tobacco: Never Alcohol Use Standard Drinks/Week Comments Not Currently 0 (1 standard drink = 0.6 oz pur e alcohol) Education Answer Date Recorded Are you interested in more education? Not on emani e 12/20/2022 Are you concerned about learning? Not on file 12/20/2022 No 12/20/2022 No 12/20/2022 Intimate Partner Violence Answer Date R ecorded [...] on filedocumented in this encounter Care Teams Motor Expert Relationship Specialty Start Date End Date Yumiko Stafford MD PCP - General Internal Medicine 12/16/22 documented as of this encounter Additional Source Comments The information contained in this document represents components of the legal health record. It is not the complete legal health record.[facility]
--- OUTSIDE RECORDS SUMMARY | 2025-06-09 10:11 | XMS_ITS | Clinical Summary ---
Author Organization [employer] Address [address] [place] [address] [address] [place] [address] Care Team Providers Care Conche Operator Name Role Phone Unavailable Primary Care Provider Unavailabl e Allergies Active Allergy Reactions Criticality Noted Date Comments Barium Sulfate Hives 11/29/2024 Doxycycline Nausea,Nausea Only Low 08/05/2017 Epinephrine Palpitations High 08/12/2018 Flavoring Agent Rash Low 10/06/2019 Gadolinium 12/15/2022 Iodinated Contrast Media 12/15/2022 Other reaction(s): skin turns Bright Red Meperidine Hcl Dizziness,Nausea,[place] se a Only Medium 08/05/2017 Molds & Smuts 12/15/2022 Shrimp Extract Diarrhea 12/15/2022 Other reaction(s): diarrhea Sulfamethoxazole-Trime thoprim 12/15/2022 hypoglycemia Medications fluocinolone (DermOtic) 0.01 % ear drops [...] Encounters Date Type Department Care Team Description 05/04/2025 1:30 PM EDT Office Visit [facility] [address] [place] [phone] Kip Mcneill BDS Dental caries (Primary Dx) 05/03/2025 Travel 04/25/2025 10:00 AM EDT Office Visit [facility] [address] [place] [phone] Kip Mcneill BDS Dental caries (Primary Dx) from Last 3 Months Social History Tobacco [...] Sign Reading Time Taken Comments Blood Pressure 118/78 05/04/2025 1:23 PM EDT Pulse 74 11/01/2024 2:17 PM EDT Temperature - - Respiratory Rate - - Oxygen Saturation - - Inhaled Oxygen Concentration - - Weight - - Height - - Body Mass Index - - Plan of Treatment Upcoming Encounters Date Type Department Care Team (Late st Contact Info) Description 08/29/2025 10:00 AM EST Office Visit [facility] [address] [place] [address] Lilly, Antoinette [address] [place], [place] [phone] Health Maintenance Due Date Last Done Comments [...] Oral Exam 03/10/2023 09/09/2022 Influenza Vaccine (#1) 2025 Dental Prophylaxis 05/05/2025 11/01/2024, 0 09/16/2023, 09/09/2022 Dental X-Ray: Bitewings 07/13/2025 07/12/20, 08/26/2023, 01/21/2023, Additional history exists Tobacco Screening 05/04/2026 05/04/2025 HIB Vaccines Aged Out No longer eligi [...] Procedure Name Priority Date/Time Associated Diagnosis Comments 5 MODL RESIN-BASED COMPOSITE - 4+ SURF, POSTERIOR Routine 05/04/2025 1:30 PM EDT 6 PALLIATIVE (EMERGENCY) TREATMENT OF DENTAL PAIN - MINOR PROCEDURE Routine 04/25/2025 10:00 AM EDT PROPHYLAXIS - ADULT Routine 11/01/2024 2 :00 PM EDT BITEWING - SINGLE RADIOGRAPHIC IMAGE Routine 07/12/2024 11:30 AM EST PERIODIC ORAL EVALUATION - ESTABLISHED PATIENT Routine 09/09/2022 2:00 PM EST from Last 3 Months or Most Recently Relevant to Health Maintenance Insurance DENTAL - [facility]
== END 2025-06-09 10:04 | disposition home or self-care (01) ==
LOC: HO.HMCFM 09:16
PROVIDERS: PCP Internal Medicine; Visit Provider Nurse Practitioner Family
DX: Z20.1 Contact with and (suspected) exposure to tuberculosis (principal); J45.20 Mild intermittent asthma, uncomplicated; D80.3 Selective deficiency of immunoglobulin G [IgG] subclasses; Z86.16 Personal history of COVID-19; D89.40 Mast cell activation, unspecified

== ENCOUNTER 2025-06-09 09:15 | Outpatient (REF) | payer MEDICARE, OTHER, SELFPAY ==
[2025-06-12 10:28] LABS: TS Negative Control Passed; TS Panel A 0; TS Panel B 0; TS Positive Control Passed; TSpotTB Negative (Negative)
== END 2025-06-09 09:16 | disposition home or self-care (01) ==
LOC: HO.WFDLDS 09:15
PROVIDERS: PCP Internal Medicine; Visit Provider Nurse Practitioner Family
DX: J45.20 Mild intermittent asthma, uncomplicated (principal); D80.3 Selective deficiency of immunoglobulin G [IgG] subclasses; E03.9 Hypothyroidism, unspecified; R42 Dizziness and giddiness; I10 Essential (primary) hypertension; D89.40 Mast cell activation, unspecified; Z20.1 Contact with and (suspected) exposure to tuberculosis; Z86.16 Personal history of COVID-19
CPT/HCPCS: 36415; 86481; 96127; 99212

== ENCOUNTER 2025-06-20 10:00 | Outpatient (AMB) | payer MEDICARE, OTHER, SELFPAY ==
--- OUTSIDE RECORDS SUMMARY | 2025-06-08 10:54 | XMS_ITS | Encounter Summary ---
Author Organization [facility] Address [address] [place] [address] Phone Care Team Providers Care Frame Builder Name Role Phone Yumiko Stafford MD Primary Care Provider + [phone] Encounter Details Date Type Department Care Team (Late st Contact Info) Description 06/08/2025 10:54 AM EDT Hospital Encounter [facility] [address] [place] [address] Malorie Busby, WEALTH MANAGEMENT DIRECTOR [address] [place] [address] [email or web address] Social History Tobacco Use Types Packs/Day Years [...] acute cardiopulmonary process. us Malorie Christian Qi WEALTH MANAGEMENT DIRECTOR IMG XR CHEST Final R esult documented in this encounter Visit Diagnoses Not on filedocumented in this encounter Care Teams Frame Builder Relationship Specialty Start Date End Date Yumiko Stafford MD PCP - General Internal Medicine 12/16/22 documented as of this encounter Additional Source Comments The information contained in this document represents components of the legal health record. It is not the complete legal health record.[facility]
--- NOTE | 2025-06-20 10:05 | A.OFFPC_ITS ---
Vital Signs 06/20/25 10:12 Height 5 ft 1 in Weight 146 lb 6 oz BMI 27.7 BP 121/58 L Blood Pressure Location Lt brachial Position Sitting Respiration 16 Pulse 74 Pulse Source Pulse Oximeter Temp 97.5 F Temp Source Oral Pulse Oximetry (%) 100 Oxygen Delivery Method Room Air Intake Visit Reasons: F/U Labs Intake Note: patient here for follow up on labs Mobile Qa Tester Required: No Is last menstrual period known: No Post menopausal: No Patient : No Allergies gallium Allergy (Severe, Verified 06/20/25 10:08) Hives meperidine (From Demerol) Allergy (Severe, Verified 06/20/25 10:08) Headache negram Allergy (Severe, Uncoded 06/20/25 10:08) Headache Tobacco use date assessed: 06/20/25 Fall risk assessment: 1 Fall in past year Last assessed Fall Risk: 06/20/25 Dental Screening Dental Screen Date: 06/20/25 Did you have a dental visit in the last 12 months?: Yes Did you have a dental problem in the last 6 months where you did not have access to dental care?: No Was dental information given to patient?: Patient has dentist HPI HPI Comments History of Present Illness Details The patient is a 73 year old female with a past medical history of hypothyroid, asthma, vertigo, hyperlipidemia, back pain, nephrolithiasis pre senting for follow up She was seen by my colleague on 06/09 with concerns over repeated exposure to a friend with latent TB. Her T spot is negative At the time she had a cough/URI which has since improved MSK: Chronic low back pain, b/l hip pain L>R. Left sided sciatic, neck pain. Follows with PSS. Has done physical therapy and chiro CV: Denies chest pain. Mild increase in exertional dypsnea. In Jul 2021 had presyncope & palpitations. subsequent cardiac work up was benign. She now attributes this to covid vaccination. She is prone to vertigo and takes meclizine as needed. AI: Follows with immunology. History of low immunoglobulins. She would like these repeated for her upcoming visit Hypothyroid: Stable on levothyroxine 88mcg daily Heme/onc: She is now following with surgery, Dr Carroll for a palpable mass in the right breast about 1 inch above the right nipple. She was on estradiol and a topical herbal cream that contains some estrogen. She has a history of breast implants with explantation in 2020. She has declined mammograms for the past few years. Did not want mammogram. Did undergo a right breast u/s 11/01/2024 -no evidence pf malignancy or other suspicious finding of palpable abnormality. Dr Carroll also recommended diagnostic mammogram which the patient declines and then contrast MRI but patient has issues with contrast and so have settled on non contrast MRI On estradiol. Saw urology, gynecology. Was following with integrative medicine but became too pricey On propandim ([employer])-milk thistle, ashwaghanda, green tea, turmeric History of breast implants. Surgery in 2020 for explantation. Colonoscopy 11/2022 Declines further breast cancer screening ROS see HPI PHYSICAL EXAM: GENERAL: Alert and oriented x 3. NAD EYES: EOMI. Anicteric. HENT: Moist mucous membranes. No scleral icterus. No cervical lymphadenopathy. LUNGS: Clear to auscultation bilaterally. CARDIOVASCULAR: Regular rate and rhythm. No murmur. No JVD. ABDOMEN: Soft, non-tender +bs EXTREMITIES: No edema. Non-tender. MSK: Notable right thoracolumbar and lower right trapezius spasm SKIN: No rashes or lesions. Warm. NEUROLOGIC: No focal neurological deficits. CN II-XII grossly intact PSYCHIATRIC: Cooperative. Appropriate mood and affect [facility] Social History Housing: House Alcohol intake: never Patient Tobacco Use Status: Never used Tobacco e-Cigarette/Vaping Use: Never Used Second Hand Smoke Exposure: No service: No Current occupational status: retired Cognitive needs: No Hearing needs: No Vision needs: Yes (glasses) Questionnaire Thrive Questionnaire Date Thrive assessed: 06/09/25 I am a: Patient What is your living situation today?: I have a steady place to live Within the past 12 months, did the food you bought not last and you didn't have the money to get more?: Never true Within the past 12 months, did you worry whether your food would run out before you got money to buy more?: Sometimes True Do you have trouble paying for medicines?: No Do you have trouble getting transportation to medical appointments?: No Do you have trouble paying your heating and electricity bill?: Yes Do you have trouble taking care of your child, family member or friend?: No Do you have trouble with day-to-day activities such as bathing, preparing meals, shopping, managing finances, etc.?: No Are you currently unemployed and looking for a job?: I choose not to answer this question Are you interested in more education?: Yes Please select the resources that you would like help with: Utilities Currently or been in a relationship where the following occur: No concerns reported THRIVE Score: 2 JAY-7 AMB Questionnaire JAY-7 Date JAY - 7 assessed: 06/09/25 Source: Developed by Drs. Alban Webber, Jada Del Real, Bobby Prather and colleagues, with an educational mitch from [employer]. Physical exam (Primary Care) Vital Signs: Last Vital Signs Temp 97.5 F 06/20/25 10:12 Pulse 74 06/20/25 10:12 Resp 16 06/20/25 10:12 BP 121/58 L 06/20/25 10:12 Pulse Ox 100 06/20/25 10:12 Oxygen Delivery Method Room Air 06/20/25 10:12 BMI result Body Mass Index 27.7 Tobacco/Smoking Status: Tobacco use Status Tobacco use date assessed 06/20/25 06/20/25 10:15 Patient Tobacco Use Status Never used Tobacco 06/20/25 10:15 e-Cigarette/Vaping Use Never Used 06/20/25 10:15 Thrive Assessment: Date of Thrive Assessment Date Thrive assessed 06/09/25 06/20/25 10:15 Currently or been in a relationship where the following occur: No concerns reported Coding Level of Care Code Est Pt Level 4 (88142) Diagnoses Exposure to TB 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.1 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 Right-sided thoracic back pain, unspecified chronicity M54.6 Chronicity: unspecified Back pain laterality: right Assessment & Plan Assessment & Plan (1) Exposure to TB: Code(s): Z20.1 - Contact with and (suspected) exposure to tuberculosis Category: Medical (2) Mast cell activation syndrome: Code(s): D89.40 - Mast cell activation, unspecified Category: Medical (3) Thoracic back pain: Code(s): M54.6 - Pain in thoracic spine Category: Medical Qualifiers: Chronicity: unspecified Back pain laterality: right Qualified Code(s): M54.6 - Pain in thoracic spine Plan 74 year old for follow up TB exposure with negative CXR and blood testing continue immunology follow up. labs ordered Asthma is stable Orders: Orders Immunoglobulin G Today D80.3 - Selective deficiency of immunoglobulin G [IgG] subclasses, D89.40 - Mast cell activation, unspecified, E03.8 - Other specified hypothyroidism, E06.3 - Autoimmune thyroiditis, E78.2 - Mixed hyperlipidemia, R73.03 - Prediabetes Comprehensive Met. Panel Today D80.3 - Selective deficiency of immunoglobulin G [IgG] subclasses, D89.40 - Mast cell activation, unspecified, E03.8 - Other specified hypothyroidism, E06.3 - Autoimmune thyroiditis, E78.2 - Mixed hyperlipidemia, R73.03 - Prediabetes Immunoglobulin E Today D80.3 - Selective deficiency of immunoglobulin G [IgG] subclasses, D89.40 - Mast cell activation, unspecified, E03.8 - Other specified hypothyroidism, E06.3 - Autoimmune thyroiditis, E78.2 - Mixed hyperlipidemia, R73.03 - Prediabetes Complete Blood Count Auto Diff Today D80.3 - Selective deficiency of immunoglobulin G [IgG] subclasses, D89.40 - Mast cell activation, unspecified, E03.8 - Other specified hypothyroidism, E06.3 - Autoimmune thyroiditis, E78.2 - Mixed hyperlipidemia, R73.03 - Prediabetes TSH reflex Free T4 Today D80.3 - Selective deficiency of immunoglobulin G [IgG] subclasses, D89.40 - Mast cell activation, unspecified, E03.8 - Other specified hypothyroidism, E06.3 - Autoimmune thyroiditis, E78.2 - Mixed hyperlipidemia, R73.03 - Prediabetes Vitamin D 1,25 dihydroxy Today D80.3 - Selective deficiency of immunoglobulin G [IgG] subclasses, D89.40 - Mast cell activation, unspecified, E03.8 - Other specified hypothyroidism, E06.3 - Autoimmune thyroiditis, E78.2 - Mixed hyperlipidemia, R73.03 - Prediabetes Hemoglobin A1c Today D80.3 - Selective deficiency of immunoglobulin G [IgG] subclasses, D89.40 - Mast cell activation, unspecified, E03.8 - Other specified hypothyroidism, E06.3 - Autoimmune thyroiditis, E78.2 - Mixed hyperlipidemia, R73.03 - Prediabetes
[2025-06-20 10:12] VITALS: BP 121/58; PULSE 74; RESP 16; TEMP 36.4; O2SAT 100; BMI 27.7
--- OUTSIDE RECORDS SUMMARY | 2025-06-20 11:59 | XMS_ITS | Clinical Summary ---
Author Organization [employer] Address [address] [place] [address] [address] [place] [address] Care Team Providers Care Narrow Fabrics Weaver Name Role Phone Unavailable Primary Care Provider [...] Description 05/04/2025 1:30 PM EDT Office Visit [facility] [address] [place] [address] Kip Mcneill BDS Dental caries (Primary Dx) 05/03/2025 Travel 04/25/2025 10:00 AM EDT Office Visit [facility] [address] [place] [address] Kip Mcneill BDS Dental caries (Primary Dx) [...] Description 08/29/2025 10:00 AM EST Office Visit [facility] [address] [place] [address] Llily, Antoinette [address] [place], [place] [phone] Health Maintenance Due Date Last Done Comments [...]
--- OUTSIDE RECORDS SUMMARY | 2025-06-20 11:59 | XMS_ITS | Clinical Summary ---
Author Organization [facility] Address [address] [facility] [address] [place] [address] Phone Care Team Providers Care Business Intelligence Consultant Name Role Phone Ymuiko Stafford MD Primary Care Provider + [phone] Allergies Active Allergy Reactions Criticality Noted Date Comments Adhesive 12/15/2022 welts Sulfamethoxazole-Trimethoprim 2022 hypoglycemia Barium Sulfate Hives 11/29/2024 Ciprofloxacin Hives 03/07/2019 Meperidine Headaches 12/15/2022 Iodinated Contrast Media 12/15/2022 Other reaction(s): skin turns Bright Red Epinephrine 08/12/2018 Gadolinium-Containing Contrast Media 12/15/2022 Mold Extracts 12/15/2022 Nalidixic Acid Headaches 12/15/2022 Penicillins Rash High 11/28/2015 Shrimp 12/15/2022 Other reaction(s): diarrhea Medications estradioL (ESTRACE) 0.01 % (0.1 mg/gram) vaginal cream INSERT 1 GRAM PER VAGINA 3X PER WEEK 3 Active levothyroxine (SYNTHROID, LEVOTHROID) 88 MCG tablet Take 88 mcg by mouth daily. 3 Active Medication-Free Text Adaptogen capsule Active multivitamin-mi nerals-lutein (CENTRUM SILVER) Tab Take 1 tablet by mouth daily. Active Medication-Free Text Koko- 2 - Max - 1 capsule daily Active Medication-Free Text Powder. VG1 Active omega 2-svu-nnl-fish oil 1,000 mg (120 mg-180 mg) Cap Take 1 capsule by mouth daily. Active lactobacillus rhamnosus GG-inulin (CULTURELLE PROBIOTIC) 10 billion cell -200 mg CpSP Take 200 mg by mouth daily. Active meclizine (ANTIVERT) 12.5 mg tablet meclizine 12.5 mg tablet TAKE 1 TABLET BY MOUTH 3 TIMES A DAY NEEDED FOR DIZZINESS Active prasterone, dhea,-calcium carb (DHEA) 10 mg-47 mg calcium Tab Take by mouth. 2 Active hydrocortisone 2.5 % cream APPLY TO EYELID RASH TWICE A DAY NEEDED MAX 14 DAYS/MONTH 3 Active levothyroxine (SYNTHROID, LEVOTHROID) 88 MCG tablet Take 1 tablet by mouth. 3 Active FLUOCINOLONE ACETONIDE OIL OTIC Place in ear(s). Act tommie neomycin-polymy shadi B-hydrocortison e (CORTOMYCIN) 3.5-10,000-1 mg/mL-unit/mL-% otic suspension 3 drops by Each Ear route 4 (four) times a day. 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 Prediabetes 11/09/2024 Vitamin D deficiency 11/09/2024 Dental caries 08/26/2023 Encounters Date Type Department Care Team Description 06/08/2025 10:54 AM EDT Hospital Encounter [facility] [address] [place] [address] Malorie Busby CNP 06/08/2025 10:30 AM EDT Office Visit [facility] at [address] [address] Holli Ceron, Malorie Esparza CNP Acute cough (Primary Dx) from Last 3 Months Immunizations No known immunizations Social History Tobacco Use Types Packs/Day Years [...] on file Sexual Orientation Not on file Last Filed Vital Signs Vital Sign Reading [...] Mass Index 24.03 06/08/2025 10:41 AM EDT Plan of Treatment Health Maintenance Due Date Last Done Comments Adult Td,Tdap Booster 1950 LIPID PANEL 1950 TSH LEVEL 1950 DEPRESSION SCREENING 1964 HEPATITIS C SCREENING 1970 PNEUMOCOCCAL VACCINES (50+ y ears) (1 of 2 - PCV) 12/04/1971 ZOSTER VACCINES (1 of 2) 12/04/1971 MAMMOGRAM 1992 COLOGUARD 1997 FIT TEST 1997 FOBT 1997 SIGMOIDOSCOPY 1997 VIRTUAL COLONOSCOPY 1997 RSV VACCINE (1 - Risk 50-74 years 1-dose series) 2002 OSTEOPOROSIS SCREENING INITI AL (ONE-TIME) 2017 INFLUENZA VACCINE (#1) 2025 COVID-19 VACCINE (2 - 2024-2 6 season) 2025 10/04/2021 COLONOSCOPY 12/16/2032 12/16/2022 COLORECTAL CANCER SCREENING 12/16/2032 SMOKING STATUS SCREENING (On ce After 26 Yrs) Completed 06/08/2025 HEPATITIS A VACCINES Aged Out No long er eligible based on patient's age to complete this topic HIB VACCINES Aged Out No longer eligi ble based on patient's age to complete this topic MENINGOCOCCAL VACCINES (ACWY) Aged Out No longer eligible based on patient's age to complete this topic MENINGOCOCCAL VACCINES (B) Aged Out N o longer eligible based on patient's age to complete this topic Medical Devices Not on file Procedures Procedure Name Priority Date/Time Associated Diagnosis Comments XR CHEST PA AND LATERAL 2 VIEWS Urgent/patient waiting 06/08/2025 11:02 AM EDT Acute cough ENDOSCOPY, COLON 12/16/2022 10:2 5 AM EDT from Last 3 Months or Most Recently Relevant to Health Maintenance Results * XR CHEST PA AND LATERAL [...] pneumonia or acute cardiopulmonary process. us Malorie Busby [facility] IMG XR CHEST Final R esult * ENDOSCOPY, COLON (12/16/2022 10:25 AM EDT) Narrative Transcriptions Ismael Miller MD - 12/16/2022 10:25 AM EDT [facility] Patient Name: Angelina Argueta Attending MD:: ISMAEL MILLER MD, , Procedure Date: 12/16/2022 10:25 AM Date of : 1950 Age: 72 Admit Type: Outpatient Gender: Female Room: [place] [address] Referring MD: Unknown UnknownYumiko Exam Type: Colonoscopy Indications: Positive Cologuard test Medications: Monitored Anesthesia Care Procedure: Informed consent was obtained from the patientafter discussion of the indications, limitations, alternatives, benefits, and risks of the procedure. Risks specifically discussed include but are not limited to medication reactions, missed lesions, bleeding, perforation, or the need for emergent surgery. Throughout the procedure, the patient's blood pressure, pulse, end-tidal CO2, and oxygensaturations were monitored continuously. The Olympus pediatric variable colonoscopePCF-[id number] #2 was introduced through the anus and advanced tothe cecum, identified by appendiceal orifice andileocecal valve. The colonoscopy was performed without difficulty. The patient tolerated the procedurewell. The quality of the bowel preparation was excellent. The quality of the bowel preparation was evaluated using the BBPS (Cash Bowel Preparation Scale)with scores of: Right Colon = 3, Transverse Colon = 3and Left Colon = 3 (entire mucosa seen well with no residual staining, small fragments of stool oropaque liquid). The total BBPS score equals 9. Anatomical landmarks were photographed. Complications: No immediate complications. Estimated blood loss:None. Findings: The perianal and digital rectal examinations were normal. Scattered small-mouthed diverticula were found inthe sigmoid colon. There was narrowing of the colon in association with the diverticular opening. Internal hemorrhoids were found duringretroflexion. The hemorrhoids were mild. The exam was otherwise normal throughout theexamined colon. Impression: - Mild diverticulosis in the sigmoid colon. Therewas narrowing of the colon in association with the diverticular opening. - Internal hemorrhoids. - No specimens collected. Recommendation: - Discharge patient to home. - No further colonoscopies recommended givenpatient age, no history of colonic polyps and no family history of colon cancer. ISMAEL MILLER MD, 12/16/2022 10:51:27 AM This report has been signed electronically. Number of Addenda: 0 Note Initiated On: 12/16/2022 10:25 AM Procedure Code(s): --- Professional --- 60607, Colonoscopy, flexible; diagnostic, including collection of specimen(s) by brushing or washing, when performed (separateprocedure) --- Technical --- 99973, Colonoscopy, flexible; diagnostic, including collection of specimen(s) by brushing or washing, when performed (separateprocedure) Diagnosis Code(s): --- Professional --- K64.8, Other hemorrhoids R19.5, Other fecal abnormalities K57.30, Diverticulosis of large intestine without perforation or abscess without bleeding --- Technical --- K64.8, Other hemorrhoids R19.5, Other fecal abnormalities K57.30, Diverticulosis of large intestine without perforation or abscess without bleeding CPT copyright 2021 [employer]. All rights reserved. The codes documented in this report are preliminary and upon flavor maker reviewmay be revised to meet current compliance requirements. Procedure Date: 12/16/2022 10:25:[address] [place] [address] Unknown Unknown MD GI PROCEDURE ORDERABLES Final Result from Last 3 Months or Most Recently Relevant to Health Maintenance Insurance MEDICARE PART A & B [employer] ENHANCE SUPPLEMENT MEDICARE PART A & B [employer]ANCE SUPPLEMENT MEDICARE PART A & B [employer] SU[employer]LE[employer] MEDICARE PART A & B [facility] MEDICARE ENHANCE SUPPLEMENT MEDICARE PART A & B [facility] MEDICARE ENHANCE SUPPLEMENT MEDICARE PART A & B [facility] MEDICARE ENHANCE SUPPLEMENT Care Teams Business Intelligence Consultant Relationship Specialty Start Date End Date Yumiko Stafford MD PCP - General Internal Medicine 12/16/22 Additional Source Comments The information contained in this document represents components of the legal health record. It is not the complete legal health record.[facility]
--- OUTSIDE RECORDS SUMMARY | 2025-06-20 11:59 | XMS_ITS | Encounter Summary ---
Author Organization [employer] [facility] Address [address] [place] [address] [address], [place] [address] Care Team Providers Care Machine Ii Trimmer Name Role Phone Unavailable Primary Care Provider Unavailabl e Encounter Details Date Type Department Care Team (Latest Contact Info) Description 10/22/2018 Abstract [facility] CONVERSIONS Dental, Provider, DDS Social History Tobacco [...] Description 08/29/2025 10:00 AM EST Office Visit [facility] [address] [place], [place] [phone] Antoinette Carr [address] [place], [place] [phone] documented as of this encounter Visit Diagnoses Not on filedocumented in this encounter
--- OUTSIDE RECORDS SUMMARY | 2025-06-20 11:59 | XMS_ITS | Encounter Summary ---
Author Organization [facility] Address [address] [place] [address] Phone Care Team Providers Care Carbonizer Tester Name Role Phone Yumiko Stafford MD Primary Care Provider + [phone] Encounter Details Date Type Department Care Team (Late st Contact Info) Description 12/16/2022 Procedure Pass [facility] Endoscopy Admitting Dept Virtual Department [address] [place] [address] Social History Tobacco Use Types Packs/Day Years [...] on filedocumented in this encounter Care Teams Carbonizer Tester Relationship Specialty Start Date End Date Yumiko Stafford MD PCP - General Internal Medicine 12/16/22 documented as of this encounter Additional Source Comments The information contained in this document represents components of the legal health record. It is not the complete legal health record.[facility]
--- OUTSIDE RECORDS SUMMARY | 2025-06-20 11:59 | XMS_ITS | Encounter Summary ---
Author Organization [facility] [facility] [employer] [facility] Address [address] [place] [address] [address] Care Team Providers Care Behavioral Science Chair Name Role Phone Unavailable Primary Care Provider Unavailabl e Encounter Details Date Type Department Care Team (Latest Contact Info) Description 06/25/2021 Abstract [facility] CONVERSIONS Dental, Provider, DDS Social History Tobacco [...] Description 08/29/2025 10:00 AM EST Office Visit [facility] [address] [place], [place] [phone] Antoinette Carr [address] [place], [place] [phone] documented as of this encounter Visit Diagnoses Not on filedocumented in this encounter
--- OUTSIDE RECORDS SUMMARY | 2025-06-20 11:59 | XMS_ITS | Clinical Summary ---
Author Organization [address] [facility] Address [address] [place] [address] Phone Care Team Providers Care Cable Swager Name Role Phone Yumiko Chamorro MD Primary Care Provider [phone] Allergies Active Allergy Reactions Criticality Noted Date [...] age to complete this topic Insurance MEDICARE [facility] Care Teams Cable Swager Relationship Specialty Start Date End Date Yumiko Chamorro MD [address] [place] [id number] PCP - General Internal Medicine 11/23/24
== END 2025-06-20 10:42 | disposition home or self-care (01) ==
LOC: HO.HMCFM 10:02
PROVIDERS: PCP Internal Medicine; Visit Provider Internal Medicine
DX: Z20.1 Contact with and (suspected) exposure to tuberculosis (principal); D89.40 Mast cell activation, unspecified; M54.6 Pain in thoracic spine

== ENCOUNTER → 2025-06-20 10:00 | Outpatient (BNVA) | payer MEDICARE, OTHER, SELFPAY | PROVIDERS: PCP Internal Medicine; Visit Provider Internal Medicine | DX: D89.40 Mast cell activation, unspecified (principal); M54.6 Pain in thoracic spine; E03.9 Hypothyroidism, unspecified; M54.50 Low back pain, unspecified; G89.29 Other chronic pain; Z20.1 Contact with and (suspected) exposure to tuberculosis; Z79.899 Other long term (current) drug therapy; Z98.82 Breast implant status | CPT/HCPCS: 99212 ==

== ENCOUNTER 2025-06-22 10:32 | Outpatient (REF) | payer MEDICARE, OTHER, SELFPAY ==
--- OUTSIDE RECORDS SUMMARY | 2025-06-08 10:54 | XMS_ITS | Encounter Summary ---
Author Organization [facility] Address [address] [place] [address] Phone Care Team Providers Care Coding Quality Coordinator Name Role Phone Yumiko Stafford MD Primary Care Provider + [phone] Encounter Details Date Type Department Care Team (Late st Contact Info) Description 06/08/2025 10:54 AM EDT Hospital Encounter [facility] [address] [place] [address] Malorie Busby, SWEET DOUGH MIXER [address] [place] [address] [email or web address] Social History Tobacco Use Types Packs/Day Years Used Date Smoking Tobacco: Never Smokeless Tobacco: Never Alcohol Use Standard Drinks/Week Comments Not Currently [...] on file documented as of this encounter Plan of [...] IMPRESSION: No pneumonia or acute cardiopulmonary process. us Malorie Christian Qi SWEET DOUGH MIXER IMG XR CHEST Final R esult documented in this encounter Visit Diagnoses Not on filedocumented in this encounter Care Teams Coding Quality Coordinator Relationship Specialty Start Date End Date Yumiko Stafford MD PCP - General Internal Medicine 12/16/22 documented as of this encounter Additional Source Comments The information contained in this document represents components of the legal health record. It is not the complete legal health record.[facility]
--- OUTSIDE RECORDS SUMMARY | 2025-06-22 12:52 | XMS_ITS | Encounter Summary ---
Author Organization [employer] Address [address] [place] [address] [address] [address] Care Team Providers Care Mapping Engineer Name Role Phone Unavailable Primary Care Provider Unavailabl e Encounter Details Date Type Department Care Team (Latest Contact Info) Description 06/25/2021 Abstract [facility] CONVERSIONS Dental, Provider, DDS Social History [...] Description 08/29/2025 10:00 AM EST Office Visit [facility] [address] [place], [place] [phone] Antoinette Carr [address] [place], [place] [phone] documented as of this encounter Visit Diagnoses Not on filedocumented in this encounter
--- OUTSIDE RECORDS SUMMARY | 2025-06-22 12:52 | XMS_ITS | Clinical Summary ---
Author Organization [employer] [facility] Address [address] [place] [address] [address] [place] [address] Care Team Providers Care Top Edge Beveler Name Role Phone Unavailable Primary Care Provider [...] Description 05/04/2025 1:30 PM EDT Office Visit [facility] [address] [place] [address] Kip Mcneill BDS Dental caries (Primary Dx) 05/03/2025 Travel 04/25/2025 10:00 AM EDT Office Visit [facility] [address] [place] [address] Kip Mcneill BDS Dental caries (Primary Dx) [...] Description 08/29/2025 10:00 AM EST Office Visit [facility] [address] [place] [address] Lilly, Antoinette [address] [place], [place] [phone] Health Maintenance Due Date Last Done Comments [...]
--- OUTSIDE RECORDS SUMMARY | 2025-06-22 12:52 | XMS_ITS | Encounter Summary ---
Author Organization [facility] Address [address] [place] [address] Phone Care Team Providers Care Benefits Analyst Name Role Phone Yumiko Stafford MD Primary Care Provider + [phone] Encounter Details Date Type Department Care Team (Late st Contact Info) Description 12/16/2022 Procedure Pass [facility] Endoscopy Admitting Dept Virtual Department [address] [place] [address] Social History Tobacco Use Types Packs/Day Years [...] on filedocumented in this encounter Care Teams Benefits Analyst Relationship Specialty Start Date End Date Yumiko Stafford MD PCP - General Internal Medicine 12/16/22 documented as of this encounter Additional Source Comments The information contained in this document represents components of the legal health record. It is not the complete legal health record.[facility]
--- OUTSIDE RECORDS SUMMARY | 2025-06-22 12:52 | XMS_ITS | Encounter Summary ---
Author Organization [employer] Address [address] [place] [address] [address] [address] Care Team Providers Care Chalk Cutter Name Role Phone Unavailable Primary Care Provider Unavailabl e Encounter Details Date Type Department Care Team (Latest Contact Info) Description 10/22/2018 Abstract [facility] CONVERSIONS Dental, Provider, DDS Social [...] Description 08/29/2025 10:00 AM EST Office Visit [facility] [address], [place] [phone] Antoinette Carr [address] [place], [place] [phone] documented as of this encounter Visit Diagnoses Not on filedocumented in this encounter
--- OUTSIDE RECORDS SUMMARY | 2025-06-22 12:52 | XMS_ITS | Clinical Summary ---
Author Organization [facility] Address [address] [place] [phone] Phone Care Team Providers Care Metal Bonder Name Role Phone Yumiko Stafford MD Primary Care Provider [phone] Allergies Active Allergy Reactions Criticality Noted Date [...] Active Medication-Free Text Powder. VG1 Active omega 8-gni-xfd-fish oil 1,000 mg (120 mg-180 mg) Cap [...] Description 06/08/2025 10:54 AM EDT Hospital Encounter [facility] [address] [place] [id number] Malorie Busby CNP 06/08/2025 10:30 AM EDT Office Visit [facility] at [address] [address] Holli Ceron, Malorie Esparza CNP Acute cough [...] or acute cardiopulmonary process. us Malorie Busby [facility] IMG XR CHEST Final R esult * ENDOSCOPY, COLON (12/16/2022 10:25 AM EDT) Narrative Transcriptions Ismael Miller MD - 12/16/2022 10:25 AM EDT [facility] Patient Name: Angelina Argueta Attending MD:: ISMAEL MILLER MD, , Procedure Date: 12/16/2022 10:25 AM Date of : 1950 Age: 72 Admit Type: Outpatient Gender: Female Room: [place] [address] Referring MD: Unknown UnknownYumiko Exam Type: Colonoscopy [...] bowel preparation was evaluated using the BBPS ([place] Bowel Preparation Scale)with scores of: Right Colon [...] 10:25 AM Procedure Code(s): --- Professional --- 38698, Colonoscopy, flexible; diagnostic, including collection of specimen(s) by brushing or washing, when performed (separateprocedure) --- Technical --- 02749, Colonoscopy, flexible; diagnostic, including collection of specimen(s) by brushing or washing, when performed (separateprocedure) Diagnosis Code(s): --- Professional --- K64.8, Other hemorrhoids R19.5, Other fecal abnormalities K57.30, Diverticulosis of large intestine without perforation or abscess without bleeding --- Technical --- K64.8, Other hemorrhoids R19.5, Other fecal abnormalities K57.30, Diverticulosis of large intestine without perforation or abscess without bleeding CPT copyright 2021 [employer]. All rights reserved. The codes documented in this report are preliminary and upon message and delivery service pricer reviewmay be revised to meet current compliance requirements. Procedure Date: 12/16/2022 10:25:[address] [place] [id number] Unknown Unknown MD GI PROCEDURE ORDERABLES Final Result from Last 3 Months or Most Recently Relevant to Health Maintenance Insurance MEDICARE PART A & B [employer] SUPPLEMENT MEDICARE PART A & B [employer] SUPPLEMENT MEDICARE PART A & [employer] SU[employer] MEDICARE PART A & B [facility] MEDIC[facility] ENHANCE SUPPLEMENT MEDICARE PART A & B [facility] MEDIC[facility] ENHANCE SUPPLEMENT MEDICARE PART A & B [facility] MEDICARE ENHANCE SUPPLEMENT Care Teams Metal Bonder Relationship Specialty Start Date End Date Yumiko Stafford MD PCP - General Internal Medicine 12/16/22 Additional Source Comments The information contained in this document represents components of the legal health record. It is not the complete legal health record.[facility]
--- OUTSIDE RECORDS SUMMARY | 2025-06-22 12:52 | XMS_ITS | Clinical Summary ---
Author Organization [facility] Address [address] [place] [address] Phone Care Team Providers Care Motorcycle Sales Associate Name Role Phone Yumiko Chamorro MD Primary Care Provider [phone] Allergies Active Allergy Reactions Criticality Noted Date [...] age to complete this topic Insurance MEDICARE [facility] Care Teams Motorcycle Sales Associate Relationship Specialty Start Date End Date Yumiko Chamorro MD [address] [place] [id number] PCP - General Internal Medicine 11/23/24
[2025-06-22 14:22] LABS: MANUAL DIFF FLAG NO
[2025-06-22 14:34] LABS: Hematocrit 40.8 % (37.0-47.0); Hemoglobin 12.9 g/dl (12.0-16.0); Imm Gran Abs Auto 0.01 X10*3/uL (0.00-0.03); Imm Gran Pct Auto 0.2 % (0.0-0.4); Lymphocytes Absolute Auto 1.7 X10*3/uL (1.2-4.9); Mean Corpuscular HGB Conc 31.6 g/dl (31.0-35.0); Mean Corpuscular Hemoglobin 28.7 pg (27.0-33.0); Mean Corpuscular Volume 90.9 fL (80.0-98.0); NRBC Abs Auto 0.000 X10*3/uL (0.0-0.012); NRBC Pct Auto 0.0 /100WBC (0.0-0.2); Platelet Count 313 X10*3/uL (160-400); Red Blood Count 4.49 X10*6/uL (4.20-5.50); White Blood Count 5.6 X10*3/uL (4.8-10.8)
[2025-06-22 15:11] LABS: Alanine Aminotransferase 9 U/L (0-31); Albumin Level 4.2 g/dL (3.5-5.0); Alkaline Phosphatase 78 U/L (39-117); Anion Gap 10 (12-20); Aspartate Amino Transferase 20 U/L (5-31); Blood Urea Nitrogen 16 mg/dL (9-16); Calcium 9.2 mg/dL (8.4-10.2); Carbon Dioxide 28 mmol/L (22-29); Chloride 110 mmol/L (96-108); Estimated Glomerular Filt Rate > 60; Potassium 3.9 mmol/L (3.3-5.1); Sodium 144 mmol/L (135-145); Total Protein 6.4 g/dL (6.5-8.0)
[2025-06-23 04:48] LABS: Immunoglobulin G 647 mg/dL (600-1540)
[2025-06-26 13:54] LABS: VITAMIN D (1,25 OH) D3 50 pg/mL; Vit D (1,25-Dihydroxy) Total 50 pg/mL (18-72); Vitamin D (1,25 OH) D2 <8 pg/mL
== END 2025-06-22 10:33 | disposition home or self-care (01) ==
LOC: HO.WFDLDS 10:32
PROVIDERS: Visit Provider Internal Medicine
DX: E78.2 Mixed hyperlipidemia (principal); E06.3 Autoimmune thyroiditis; E03.8 Other specified hypothyroidism; D89.40 Mast cell activation, unspecified; D80.3 Selective deficiency of immunoglobulin G [IgG] subclasses; R73.03 Prediabetes; Z13.21 Encounter for screening for nutritional disorder
CPT/HCPCS: 36415; 80053; 82652; 82784; 82785; 83036; 84443; 85025